=== PATIENT | female | born 1960 | race Caucasian/White ===

== ENCOUNTER 2018-04-29 14:05 | Outpatient (CLI) ==
--- NOTE | 2018-04-29 16:31 | US ---
EXAM: Ultrasound bilateral carotid duplex HISTORY: Syncope and dizziness COMPARISON: None TECHNIQUE: Sonographic and color Doppler evaluation of the carotids were performed. FINDINGS: The right carotid is patent in appearance with moderate scattered atherosclerotic plaque visualized. The right ICA peak systolic velocity measures 80 cm/sec which is normal. The ICA / CCA peak systolic velocity ratio is 1.3 and ICA end-diastolic velocity is 30 cm/sec. The left carotid is patent in appearance with moderate scattered atherosclerotic plaque visualized. The left ICA peak systolic velocity measures 70 cm/sec which is normal. The left ICA / CCA peak systolic velocity ratio is 1.0 and ICA end-diastolic velocity is 30 cm/sec. Vertebral arteries demonstrate antegrade flow bilaterally. Incidental left thyroid nodules with the largest measuring 1.7 x 1.2 x 1.4 cm. IMPRESSION: 1. Moderate bilateral atherosclerotic disease with no elevated velocities to suggest hemodynamically significant stenosis. 2. Incidentally noted left thyroid nodules.
== END 2018-04-29 14:06 | disposition home or self-care (01) ==
LOC: RAD 14:05
PROVIDERS: ATTEND Internal Medicine
DX: R55 Syncope and collapse (principal); R42 Dizziness and giddiness